=== PATIENT | male | born 1960 | race Caucasian/White ===

== ENCOUNTER 2018-11-25 17:01 | Emergency (ER) | payer OTHER ==
[~2018-11-25] VITALS: Ht 188 cm; Wt 90.7 kg
[~2018-11-25 17:01] MED LIST: Advil Pm Liqui1 EACH PO; BENADRYL25 MG PO; Bactrim Ds Tab1 EACH PO; CEPH500 PO; CIPR500 PO; Cleocin HCl300 MG PO; ERYT.5TO LEFTEYE; Norco 5-325 Ta1 EACH PO; OXYACE5T PO; OXYACE7.5T PO; Oxycodone-Apap1 EAC3 PO; Pepcid20 MG PO; Percocet 5-3251 EACH PO; Prednisone20 MG PO; RXERYTOPTH OP; RXOXYACE PO; TRAM50 PO; Zovirax400 MG PO
[2018-11-25] MEDS ORDERED: Cleocin HCl300 MG PO (18:14)
[2018-11-25] MEDS ORDERED: Naprosyn500 MG PO (18:15)
== END 2018-11-25 18:27 | disposition home or self-care (01) ==
LOC: ER 17:01
DX: L02.411 Cutaneous abscess of right axilla (principal); Z88.2 Allergy status to sulfonamides; Z87.891 Personal history of nicotine dependence
CPT/HCPCS: 99282

== ENCOUNTER 2019-06-23 15:12 | Emergency (ER) | payer OTHER ==
[~2019-06-23] VITALS: Ht 188 cm; Wt 88.5 kg
[~2019-06-23 15:12] MED LIST changes: +Naprosyn500 MG PO
[2019-06-23] MEDS ORDERED: CEPH500 PO (19:34)
[2019-06-23] MEDS ORDERED: Monodox100 MG PO (19:34)
[2019-06-23] MEDS ORDERED: HYDR1TAB94 PO (19:38)
== END 2019-06-23 18:54 | disposition left against medical advice (07) ==
LOC: ER 15:12
DX: L03.012 Cellulitis of left finger (principal); Z87.891 Personal history of nicotine dependence; Z88.2 Allergy status to sulfonamides
CPT/HCPCS: 73130; 76882; 90471; 90714; 99284-25

== ENCOUNTER 2020-12-28 21:21 | Emergency (ER) | payer OTHER ==
[~2020-12-28] VITALS: Ht 188 cm; Wt 95.2 kg
[~2020-12-28 21:21] MED LIST changes: +ERYT1OIN LEFTEYE; +HYDR1TAB94 PO; +Monodox100 MG PO
== END 2020-12-28 23:47 | disposition home or self-care (01) ==
LOC: ER 21:21
DX: H18.821 Corneal disorder due to contact lens, right eye (principal); H11.421 Conjunctival edema, right eye; Z88.2 Allergy status to sulfonamides
CPT/HCPCS: 99283; A9270

== ENCOUNTER 2022-07-11 00:45 | Emergency (ER) | payer OTHER ==
[~2022-07-11] VITALS: Ht 188 cm; Wt 104.3 kg
== END 2022-07-11 03:22 | disposition home or self-care (01) ==
LOC: ER 00:45
DX: M25.511 Pain in right shoulder (principal); Z88.2 Allergy status to sulfonamides; W01.0XXA Fall on same level from slipping, tripping and stumbling without subsequent striking against object, initial encounter
CPT/HCPCS: 73030; 96372; 99283-25; J1885

== ENCOUNTER 2022-12-25 02:23 | Emergency (ER) | payer OTHER ==
[~2022-12-25] VITALS: Ht 188 cm; Wt 102.1 kg
[~2022-12-25 02:23] MED LIST changes: +Ultram50 MG PO
== END 2022-12-25 03:57 | disposition home or self-care (01) ==
LOC: ER 02:23
DX: L97.529 Non-pressure chronic ulcer of other part of left foot with unspecified severity (principal); Z88.8 Allergy status to other drugs, medicaments and biological substances
CPT/HCPCS: 73660; 99283-25; A9270

== ENCOUNTER 2023-01-03 23:02 | Emergency (ER) | payer OTHER ==
[~2023-01-03] VITALS: Ht 188 cm; Wt 104.3 kg
[2023-01-03] MEDS ORDERED: HYDR1TAB94 PO (23:35)
== END 2023-01-04 00:02 | disposition home or self-care (01) ==
LOC: ER 23:02
DX: S52.602A Unspecified fracture of lower end of left ulna, initial encounter for closed fracture (principal); S60.512A Abrasion of left hand, initial encounter; S60.511A Abrasion of right hand, initial encounter; Z88.2 Allergy status to sulfonamides; W51.XXXA Accidental striking against or bumped into by another person, initial encounter
CPT/HCPCS: 29125; 73110; 99283-25; A9270

== ENCOUNTER → 2024-11-03 | Outpatient (CLI) | payer OTHER ==
[~2024-11-03] MED LIST changes: +ONDA4ODT MM; +SULTRIDS PO
== END ==
LOC: LAB SHORT 13:36 → LAB 13:36
DX: R35.0 Frequency of micturition (principal)
CPT/HCPCS: 87086